=== PATIENT | male | born 1995 | race Hispanic/Latino ===

== ENCOUNTER 2016-07-08 16:44 | Emergency (ER) | payer OTHER ==
[~2016-07-08] VITALS: Ht 165.1 cm; Wt 56.7 kg
[~2016-07-08 16:44] MED LIST: ADVIL200 M2 PO; ANAPROX DS550 MG PO; ATIVAN0.5 M1 PO; CYCLOBENZAPRINE10 M1 PO; MEDROL DOSEPAK1 PAC PO; MOTRIN IB200 M1 PO; MOTRIN800 MG PO; NAPROSYN500 M1 PO; PERCOCET 5-3251 EACH PO; PROAIR HFA0.09 MG/Ac INH; PROAIR HFA8.5 GM INH; ZITHROMAX Z-PA250 M1 PO
[2016-07-08 17:05] VITALS: BP 118/76
--- NOTE | 2016-07-08 17:20 | ED GI/GU/ABDOMINAL COMPLAINT ---
History of Present Illness General Chief Complaint: Male Genitourinary Problems Stated Complaint: 'MY LEFT TESTICLE IS TWISTED" Source: patient Exam Limitations: no limitations Vital Signs & Intake/Output Vital Signs & Intake/Output Vital Signs Date Time Temp Pulse Resp B/P Pulse O2 O2 Flow FiO2 Ox Delivery Rate 07/08 1830 97 07/08 1705 98.6 90 18 118/76 97 Room Air Allergies Coded Allergies: NO KNOWN ALLERGIES (04/10/16) Reconcile Medications No Known Home Medications Triage Note: PT TO TRIAGE REPORTS L TESTICLE TWISTED LAST NIGHT AND THEN UNTWISTED INTO PLACE, AND PT HAS L TESTICLE/GROIN/UPPER LEG PAIN 07/13 SINCE. Triage Nurses Notes Reviewed? yes Duration: day(s): (1), constant Timing: recent history Quality/Severity: dullness, mild Location: scrotal Radiation: no radiation No Modifying Factors: none HPI: 20-year-old male comes into emergency room with complaints of left testicular pain. Symptoms began last night. Patient reports that he was rolled around in bed and noticed the pain. Mild dull pain. Denies any urethral discharge or burning with urination. Sexually active with one partner. Denies any history of sexual transmitted diseases. Denies any fever or chills. Pain is not improved when he lifts his testicles at all. No abdominal pain complaints. (TORRES FALL) Past History Travel History Traveled to [place] past 21 day No Medical History Any Pertinent Medical History? 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 No (TORRES FALL) Review of Systems Review of Systems Constitutional: Reports: no symptoms. EENTM: Reports: no symptoms. Respiratory: Reports: no symptoms. Cardiovascular: Reports: no symptoms. GI: Reports: no symptoms. Genitourinary: Reports: see HPI. Musculoskeletal: Reports: no symptoms. Skin: Reports: no symptoms. Neurological/Psychological: Reports: no symptoms. Hematologic/Endocrine: Reports: no symptoms. Immunologic/Allergic: Reports: no symptoms. All Other Systems: Reviewed and Negative (TORRES FALL) Physical Exam Physical Exam General Appearance: well developed/nourished, no apparent distress, alert, awake Head: atraumatic, normal appearance Eyes: Bilateral: normal appearance, EOMI. Ears, Nose, Throat, Mouth: hearing grossly normal, moist mucous membrane Neck: normal inspection, full range of motion Respiratory: no respiratory distress Gastrointestinal: patient has no complaints Male Genitals: testicular tenderness (L) (mild), no high riding testicle, normal inspection,, no hernia appreciated Back: normal inspection Extremities: normal range of motion Neurologic/Psych: awake, alert, oriented x 3, normal gait, normal mood/affect Skin: intact, normal color Core Measures ACS in differential dx? No Severe Sepsis Present: No Septic Shock Present: No (TORRES FALL) Progress Differential Diagnosis: testicular torsion, ureterolithiasis, urinary retention, urethritis, UTI/pyelo, epididymitis Plan of Care: Orders Procedure Date/time Status URINALYSIS 07/08 1714 Complete Laboratory Tests 07/08/16 1734: Urine Color YEL, Urine Clarity CLEAR, Urine pH 6.5, Ur Specific [place] 1.025, Urine Protein NEG, Urine Ketones NEG, Urine Nitrite NEG, Urine Bilirubin NEG, Urine Urobilinogen 0.2, Ur Leukocyte Esterase NEG, Ur Microscopic EXAM NOT REQUIRED, Urine Hemoglobin NEG, Urine Glucose NEG Diagnostic Imaging: Viewed by Me: Ultrasound. Discussed w/RAD: Ultrasound. Radiology Impression: EXAM TYPE: US - US-TESTICULAR EXAMINATION: US TESTICULAR CLINICAL INFORMATION: Pain. Assess for torsion COMPARISON: None TECHNIQUE: Multiple sonographic views of the scrotum were obtained. FINDINGS: Testicles are normal in size, shape, and echotexture. Right testicle measures 4.3 x 2.3 x 2.7 cm in size for a volume of 19.0 mL. Left testicle measures 3.7 x 2.4 x 2.4 cm for a volume of 15.1 mL. There is normal symmetric Doppler flow bilaterally with no evidence for torsion. The left epididymis is unremarkable. There is a small 1.4 x 1.0 x 0.7 cm right epididymal cyst incidentally noted. IMPRESSION: No sonographic evidence for torsion. Normal symmetric Doppler flow bilaterally. Incidental tiny right epididymal cyst. DICTATED BY: ERNESTO ZAPATA MD DATE/ TIME DICTATED:07/08/161754 STONE TRIMMER:EDA DATE/TIME TRANSCRIBED: 07/08/161754 CONFIDENTIAL, DO NOT COPY WITHOUT APPROPRIATE AUTHORIZATION. Initial ED EKG: none Comments: 07/08/2016 7:38:24 PM No suspicion for testicular torsion. Ultrasound is normal. No suspicion for epididymitis at this time. Sexually active with one partner. Pain is not relieved with elevation of testicles. Patient recommended to follow-up with urologist this week. Pain is only very mild in nature. Nontoxic-appearing. In no apparent distress. Patient understands and agrees plan of care. (TORRES FALL) Departure Departure Disposition: HOME OR SELF CARE Condition: Stable Clinical Impression Primary Impression: Testicular pain, left Referrals: MADI FRANCOIS,REYNOLD (PCP/Family) DHRUV CHANG MD Additional Instructions: Follow-up with urologist provided. Return if any concerns worsening symptoms. Return if any fever chills. Return if any discharge. Departure Forms: Customer Survey General Discharge Information Prescriptions: Current Visit Scripts No Known Home Medications (TORRES FALL) PA/HEALTHCARE TRANSLATOR Co-Sign Statement Statement: ED Attending supervision documentation- [] I saw and evaluated the patient. I have also reviewed all the pertinent lab results and diagnostic results. I agree with the findings and the plan of care as documented in the PA's/HEALTHCARE TRANSLATOR's documentation. [X] I have reviewed the ED Record and agree with the PA's/HEALTHCARE TRANSLATOR's documentation. [] Additions or exceptions (if any) to the PAs/HEALTHCARE TRANSLATOR's note and plan are summarized below: [] (TAYLOR FRANCOIS,JANA)
--- NOTE | 2016-07-08 18:01 | ULTRASOUND REPORT ---
EXAMINATION: US TESTICULAR CLINICAL INFORMATION: Pain. Assess for torsion COMPARISON: None TECHNIQUE: Multiple sonographic views of the scrotum were obtained. FINDINGS: Testicles are normal in size, shape, and echotexture. Right testicle measures 4.3 x 2.3 x 2.7 cm in size for a volume of 19.0 mL. Left testicle measures 3.7 x 2.4 x 2.4 cm for a volume of 15.1 mL. There is normal symmetric Doppler flow bilaterally with no evidence for torsion. The left epididymis is unremarkable. There is a small 1.4 x 1.0 x 0.7 cm right epididymal cyst incidentally noted. IMPRESSION: No sonographic evidence for torsion. Normal symmetric Doppler flow bilaterally. Incidental tiny right epididymal cyst.
== END 2016-07-08 18:05 ==
LOC: ERH 16:44
DX: N50.812 Left testicular pain (principal)
CPT/HCPCS: 81003